=== PATIENT | female | born 1990 | race African-American/Black ===

== ENCOUNTER 2021-06-18 11:13 | Outpatient (CLI) | payer OTHER, SELFPAY ==
[2021-06-18 18:04] LABS: Basophils Percent Auto 0.3 % (0.2-1.2); Eosinophils Absolute Auto 0.2 K/mm3 (0-0.3); Eosinophils Percent Auto 1.5 % (0-4.4); Hematocrit 30.3 % (37.0-47.0); Hemoglobin 9.7 g/dL (12.0-15.0); Immature Granulocyte Absolute 0.21 K/mm3 (0.00-0.031); Immature Granulocyte Percent A 1.8 % (0-0.5); Lymphocytes Absolute Auto 1.21 K/mm3 (0.9-3.2); Lymphocytes Percent Auto 10.2 % (18.3-44.2); Mean Corpuscular Hemoglobin 29.4 pg (26-34); Mean Corpuscular Volume 91.8 fl (80-100); Mean Platelet Volume 10.6 fl (7.4-10.4); Monocytes Absolute Auto 0.7 K/mm3 (0.1-0.6); Neutrophils Absolute Auto 9.5 K/mm3 (1.3-6.7); Neutrophils Percent Auto 80.2 % (45.5-73.1); Platelet Count Result 265 k/mm3 (150-375); Red Cell Distribution Width 13.4 % (11.5-14.5); White Blood Count 11.8 K/mm3 (4.5-10.0)
[2021-06-18 18:29] LABS: Glucose 1 Hour PP 50gm Dose 144 mg/dL
== END 2021-06-18 11:14 | disposition home or self-care (01) ==
PROVIDERS: Visit Provider Student in an Organized Health Care Education/Training Program
DX: Z34.93 Encounter for supervision of normal pregnancy, unspecified, third trimester (principal); Z3A.28 28 weeks gestation of pregnancy
CPT/HCPCS: 36415; 82947; 85025

== ENCOUNTER 2021-06-25 09:12 | Outpatient (CLI) | payer OTHER, SELFPAY ==
[2021-06-25 10:28] LABS: Glucose Fasting Gestational 103 mg/dL (>/=95)
[2021-06-25 12:05] LABS: Glucose 1 Hour Gest 162 mg/dL (>/=180)
[2021-06-25 13:19] LABS: Glucose 2 Hour Gest 154 mg/dL (>/= 155)
[2021-06-25 14:15] LABS: Glucose 3 Hour Gest 118 mg/dL (>/=140)
== END 2021-06-25 09:13 | disposition home or self-care (01) ==
PROVIDERS: PCP Student in an Organized Health Care Education/Training Program; Visit Provider Student in an Organized Health Care Education/Training Program
DX: R73.09 Other abnormal glucose (principal)
CPT/HCPCS: 36415; 82951; 82952

== ENCOUNTER 2021-07-12 20:30 | Observation (INO) | payer OTHER, SELFPAY ==
[2021-07-12 20:51] VITALS: BP 117/50; PULSE 93
[2021-07-12 21:00] VITALS: BP 115/57; PULSE 93
[2021-07-12 21:33] LABS: Add Urine Microscopic? YES; Appearance Urine Clear (Clear); Bacteria Urine Trace /hpf; Bilirubin Urine Negative (Negative); Blood Urine Negative (Negative); Color Urine Yellow (Yellow); Glucose Urine UA Negative (Negative); Ketones Urine Negative (Negative); Leukocyte Esterase Ur Negative LEU/UL (NEGATIVE); Mucus Urine Few /lpf; Nitrate Urine Negative (Negative); Protein Urine 1+ mg/dL (Negative); Squamous Epithelial Cell Urine Moderate /hpf (Few); Urobilinogen Urine Negative mg/dL (<2.0)
[2021-07-12 21:49] VITALS: TEMP 37
[2021-07-12 21:55] VITALS: BMI 34.7
--- NOTE | 2021-07-12 21:57 | OBADM ---
This patient, Mona Johnson, admitted to the OB room OB Post 116 for observation. Patient/family oriented to hospital policies and general routines including ID bracelet, bed and alarms, visiting hours, pain management, procedures, bathroom and other care routines, personal items, smoking policy, room service/diet, and visiting hours. Patient/Family are encouraged to report perceived risks to care and to ask questions if they do not understand what they are told or what they should do.
--- NOTE | 2021-07-30 13:03 | PM.OBTRLD ---
OB - Triage/Final Diagnosis Visit Information Comments/Additional reasons for admission: I have assessed the risk for this patient, Mona Johnson, and determined that she would benefit from observation care. Evaluation Laboratory results: Laboratory Tests 07/12/21 21:20 Urine Color Yellow Urine Appearance Clear Urine pH 5.0 Ur Specific [place] 1.030 Urine Protein 1+ H Urine Glucose (UA) Negative Urine Ketones Negative Ur Blood (Man) Negative Urine Nitrate Negative Urine Bilirubin Negative Urine Urobilinogen Negative Ur Leukocyte Esterase Negative Urine RBC 3-5 H Urine WBC 4-6 H Ur Squamous Epith Cells Moderate H Urine Bacteria Trace Urine Mucus Few H Final Diagnosis (1) contractions: Code(s): O47.00 - False labor before 37 completed weeks of gestation, unspecified trimester Status: Acute
== END 2021-07-12 22:05 | disposition home or self-care (01) ==
PROVIDERS: Admitting Provider Student in an Organized Health Care Education/Training Program; Visit Provider Student in an Organized Health Care Education/Training Program
DX: O47.03 False labor before 37 completed weeks of gestation, third trimester (principal); Z3A.32 32 weeks gestation of pregnancy
CPT/HCPCS: 81001; G0378; G0379

== ENCOUNTER 2021-08-12 10:07 | Outpatient (CLI) | payer OTHER, SELFPAY ==
[2021-08-12 20:31] LABS: Basophils Percent Auto 0.2 % (0.2-1.2); Eosinophils Absolute Auto 0.1 K/mm3 (0-0.3); Eosinophils Percent Auto 1.1 % (0-4.4); Hematocrit 36.4 % (37.0-47.0); Hemoglobin 12.2 g/dL (12.0-15.0); Immature Granulocyte Absolute 0.17 K/mm3 (0.00-0.031); Immature Granulocyte Percent A 1.7 % (0-0.5); Lymphocytes Absolute Auto 0.96 K/mm3 (0.9-3.2); Lymphocytes Percent Auto 9.8 % (18.3-44.2); Mean Corpuscular HGB Conc 33.5 g/dl (32-36); Mean Corpuscular Hemoglobin 31.6 pg (26-34); Mean Corpuscular Volume 94.3 fl (80-100); Mean Platelet Volume 10.7 fl (7.4-10.4); Monocytes Absolute Auto 0.8 K/mm3 (0.1-0.6); Monocytes Percent Auto 7.8 % (2.6-8.5); Neutrophils Absolute Auto 7.8 K/mm3 (1.3-6.7); Neutrophils Percent Auto 79.4 % (45.5-73.1); Platelet Count Result 212 k/mm3 (150-375); Red Blood Count 3.86 M/mm3 (4.2-5.4); Red Cell Distribution Width 17.2 % (11.5-14.5); White Blood Count 9.8 K/mm3 (4.5-10.0)
[2021-08-13 11:04] LABS: Rapid Plasma Reagin Non-Reactive (NonReactive)
[2021-08-13 11:26] LABS: HIV 1/2 Ab P24 Ag Result Negative (Negative)
== END 2021-08-12 10:08 | disposition home or self-care (01) ==
PROVIDERS: Visit Provider Student in an Organized Health Care Education/Training Program
DX: Z34.93 Encounter for supervision of normal pregnancy, unspecified, third trimester (principal); Z3A.39 39 weeks gestation of pregnancy
CPT/HCPCS: 36415; 85025; 86592; 86703; G0432

== ENCOUNTER 2021-09-03 05:00 | Inpatient (IN) | payer OTHER, SELFPAY ==
[2021-09-03] VITALS (166 sets, daily range): BP systolic 76–168; BP diastolic 40–152; PULSE 47–206; RESP 16–20; TEMP 36.3–37.9; O2SAT 77–100; BMI 36.3
--- NOTE | 2021-09-03 05:26 | LDADM ---
This patient, Mona Johnson, was admitted to Labor/Delivery/Recovery 107 on 09/03/21 at 05:00. Plans for labor, pain management and were discussed with patient. Patient/family oriented to hospital policies and general routines including ID bracelet, bed and alarms, visiting hours, pain management, procedures, bathroom and other care routines, personal items, smoking policy, room service/diet and guest tray routines, infant security routines, and visiting hours. Patient/Family are encouraged to report perceived risks to care and to ask questions if they do not understand what they are told or what they should do. See OBIX for further documentation.
[2021-09-03] MEDS: LACTATED RINGERS 1,000 ML 125 ML IV CONT ×3 (05:53→22:00)
[2021-09-03] MEDS: OXYTOCIN 30 UNITS/NS 500 ML 30 UNITS/500 ML BAG IV CONT (05:53)
[2021-09-03 06:05] LABS: Basophils Percent Auto 0.3 % (0.2-1.2); Eosinophils Absolute Auto 0.1 K/mm3 (0-0.3); Eosinophils Percent Auto 0.8 % (0-4.4); Hematocrit 37.6 % (37.0-47.0); Immature Granulocyte Absolute 0.12 K/mm3 (0.00-0.031); Immature Granulocyte Percent A 1.1 % (0-0.5); Lymphocytes Absolute Auto 1.46 K/mm3 (0.9-3.2); Lymphocytes Percent Auto 13.3 % (18.3-44.2); Mean Corpuscular HGB Conc 34.6 g/dl (32-36); Mean Corpuscular Hemoglobin 32.5 pg (26-34); Mean Platelet Volume 10.4 fl (7.4-10.4); Monocytes Absolute Auto 0.8 K/mm3 (0.1-0.6); Monocytes Percent Auto 7.3 % (2.6-8.5); Neutrophils Absolute Auto 8.5 K/mm3 (1.3-6.7); Neutrophils Percent Auto 77.2 % (45.5-73.1); Platelet Count Result 203 k/mm3 (150-375); Red Cell Distribution Width 17.2 % (11.5-14.5)
--- NOTE | 2021-09-03 09:57 | WPDANESEPP ---
Anes - Eval Pre Procedure Date/Time: 09/03/21 09:57 Pre Op Diagnosis: IOL Patient Data Age: 31 Gender: F Height: 1.57 m Weight: 90 kg Last Vital Signs Temp 36.3 C L 09/03/21 05:42 Pulse 89 09/03/21 09:01 Resp 18 09/03/21 05:42 BP 97/80 L 09/03/21 09:01 Allergies Allergy/AdvReac Type Severity Reaction Status Date / Time Penicillins Allergy Intermediate Unknown Verified 09/02/21 11:02 Home Medications Medication Instructions Recorded Confirmed Type docosahexaenoic acid 200 mg capsule 200 mg PO DAILY 02/24/21 08/13/21 History cholecalciferol (vitamin D3) 50 50 mcg PO DAILY #90 cap 03/04/21 08/13/21 Rx mcg (2,000 unit) capsule ferrous sulfate 325 mg (65 mg 325 mg PO DAILY #90 tablet 06/22/21 08/13/21 Rx iron) tablet valacyclovir 1 gram tablet 1,000 mg PO Q12H #20 tablet 08/04/21 08/13/21 Rx valacyclovir 500 mg tablet 500 mg PO Q12H #60 tablet 08/13/21 08/13/21 Rx Laboratory Tests 09/03/21 09/03/21 09/03/21 05:20 05:20 05:20 WBC 11.0 K/mm3 H K/mm3 (4.5-10.0) RBC 4.00 M/mm3 L M/mm3 (4.2-5.4) Hgb 13.0 g/dL g/dL (12.0-15.0) Hct 37.6 % % (37.0-47.0) MCV 94.0 fl fl (80-100) MCH 32.5 pg pg (26-34) MCHC 34.6 g/dl g/dl (32-36) RDW 17.2 % H % (11.5-14.5) Plt Count 203 k/mm3 k/mm3 (150-375) MPV 10.4 fl fl (7.4-10.4) Immature Gran % (Auto) 1.1 % H % (0-0.5) Neut % (Auto) 77.2 % H % (45.5-73.1) Lymph % (Auto) 13.3 % L % (18.3-44.2) [place] % (Auto) 7.3 % % (2.6-8.5) Eos % (Auto) 0.8 % % (0-4.4) Baso % (Auto) 0.3 % % (0.2-1.2) Lymph # (Auto) 1.46 K/mm3 K/mm3 (0.9-3.2) [place] # (Auto) 0.8 K/mm3 H K/mm3 (0.1-0.6) Eos # (Auto) 0.1 K/mm3 K/mm3 (0-0.3) Baso # (Auto) 0.0 K/mm3 K/mm3 (0.0-0.1) Abs Immat Gran (auto) 0.12 K/mm3 H K/mm3 (0.00-0.031) Absolute Neuts (auto) 8.5 K/mm3 H K/mm3 (1.3-6.7) Absolute Nucleated RBC 0.0 K/mm3 K/mm3 (0.0-0.012) Nucleated RBC % 0.0 % % (0.0-0.2) RPR Pending Blood Type A Positive Antibody Screen Negative Patient hx anesthesia problems: none Family hx anesthesia problems: none Results Review: All pre-operative results and documents have been reviewed as part of the pre-operative evaluation. [facility] Past Medical History Medical History History of back pain injections in back. History of drainage of abscess Left breast History of vaginal delivery x1 Family History Family History Father Diabetes mellitus Hypertension Cerebrovascular accident Mother Heart disease Cerebrovascular accident Grandparent Diabetes mellitus Hypertension Thyroid disorder Social History Social History Smoking status: Never smoker Alcohol intake: former Substance use: never Spiritual care concerns: No Exam Day of Procedure 09/03/21 09:57 Patient weight: obese Heart: regular rate and rhythm Lungs: normal air movement Airway: Mallampati scale Neurological: alert and oriented
--- NOTE | 2021-09-03 10:27 | PM.IMHP ---
H&P: HPI History of Present Illness Date/Time: 09/03/21 10:27 Patient is a 31yo LMP 11/29/20 with MOY 09/05/21 currently 39w5d gestation who presents to L&D for scheduled elective IOL. Patient is dated by LMP consistent with US on 02/03/21 at 9w gestation. She presents for a scheduled elective IOL. Reports feeling well today. Reports occasional contractions that she has experienced for past several weeks. Denies any vaginal bleeding or leakage of fluid. Reports good movement. Patient was diagnosed with primary HSV outbreak a few weeks ago. She was adequately treated and has remained on suppression therapy since then. She denies any prodromal symptoms and has no evidence of recurrence at this time. Chief Complaint: Intrauterine at 39w5d gestation Review of Systems Review of Systems: All systems reviewed & are unremarkable except as noted in HPI and below Constitutional: Constitutional: Reports as per HPI, Reports no additional constitutional complaints, Denies chills, Denies fever(s), Denies headache(s) and Denies night sweats Eyes: Eyes: Reports as per HPI and Reports no additional eye complaints ENT: Reports system reviewed and no additional complaints, except as documented, Reports as per HPI, Reports Normal hearing present and Denies headache(s) Cardiovascular: Cardiovascular: Reports as per HPI, Reports no additional cardiovascular complaints, Denies chest pain and Denies dyspnea Respiratory: Respiratory: Reports as per HPI, Reports no additional respiratory complaints, Denies cough and Denies dyspnea Gastrointestinal: Gastrointestinal: Reports as per HPI, Reports no additional gastrointestinal complaints, Denies abdominal pain, Denies change in bowel habits, Denies change in stool character, Denies nausea and Denies vomiting Genitourinary: Genitourinary: Reports no additional female genitourinary complaints, Reports as per HPI, Denies abnormal vaginal bleeding, Denies genital lesions, Denies hot flashes, Denies dyspareunia, Denies pelvic pain, Denies sexual dysfunction, Denies urinary incontinence, Denies vaginal discharge, Denies vaginal dryness and Denies vaginal odor Musculoskeletal: Musculoskeletal: Reports no additional musculoskeletal complaints and Reports as per HPI Integumentary/Breasts: Skin/Breast: Reports system reviewed and no additional complaints, except as docu, Reports as per HPI, Denies breast pain and Denies nipple discharge Neurologic: Reports system reviewed and no additional complaints, except as documented, Reports as per HPI, Reports Normal hearing present and Denies headache(s) Psychiatric: Psychiatric: Reports no additional psychiatric complaints, Reports as per HPI, Denies anxiety and Denies depression Endocrine: Endocrine: Reports no additional endocrine complaints and Reports as per HPI Hematologic/Lymphatic: Hematologic/Lymphatic: Reports no additional hematologic/lymphatic complaints and Reports as per HPI Allergic/Immunologic: Allergic/Immunologic: Reports no additional allergic/immunologic complaints and Reports as per HPI PMFSH Past Medical History Medical History History of back pain injections in back. History of drainage of abscess Left breast History of vaginal delivery x1 Family History Family History Father Diabetes mellitus Hypertension Cerebrovascular accident Mother Heart disease Cerebrovascular accident Grandparent Diabetes mellitus Hypertension Thyroid disorder Social History Social History Smoking status: Never smoker Alcohol intake: former Substance use: never Spiritual care concerns: No Meds Home Medications and Allergies Home Medications Medication Instructions Recorded Confirmed Type docosahexaenoic acid 200 mg capsule 200 mg PO DAILY 02/24/21 08/13/21 History inna
--- NOTE | 2021-09-03 10:46 | WPDHPUPDATE1 ---
History and Physical Update Update Date/Time: 09/03/21 10:46 History and Physical has been reviewed, including an updated exam of the patient. There are NO changes in the patient's condition. Risks, benefits, and alternatives have been discussed and questions answered. Patient agrees to proceed with procedure.
[2021-09-03] MEDS: fentaNYL CITRATE INJ (*CRX) 100 MCG/2 ML VIAL 50 MCG IV PUSH (11:41)
[2021-09-03] MEDS: fentaNYL CITRATE INJ (*CRX) 100 MCG/2 ML VIAL IV PUSH ×2 (15:14→17:29)
[2021-09-03] MEDS: diphenhydrAMINE HCl INJ 50 MG/ML VIAL 25 MG IV PUSH ×2 (15:40→19:17)
--- NOTE | 2021-09-03 18:55 | PM.OBPNLAB ---
Pain Control Date/time seen: 09/03/21 18:55 Patient doing well. Just received epidural and is comfortable. Per RN earlier, patient's cervix was edematous. Pt received Benadryl IV 25mg a few hours ago. SVE still /-2. Still mildly-moderately edematous. IUPC placed. Will give propranolol 2mg slow IV push and Benadryl IV 25mg again to see if patient makes any further progress. Continue pitocin. Will reevaluate in 2 hours.
[2021-09-03] MEDS: PROPRANOLOL HCL 1 MG/ML VIAL 2 MG IV PUSH (19:17)
--- NOTE | 2021-09-03 23:40 | PM.OBPRVD ---
OB - Delivery Note Procedure Delivery date: 09/03/21 Procedure: The patient is a now 31-year-old who presented to labor and delivery on the morning of 09/03/2021 at 39 weeks and 5 days gestation for a scheduled elective induction of labor. Upon presentation, patient was noted to be proximally 4 cm dilated. Induction of labor was started with Pitocin. Pitocin was started and continued titrated throughout the morning and early afternoon. Patient made cervical change to approximately 8 cm dilated. At 1:24 p.m., artificial rupture membranes was performed. Clear amniotic fluid was noted. It was anticipated that patient would progress rather quickly shortly after AROM, however, labor course became protracted afterwards. Cervical edema was also noted. head was at -2 station. Patient received 1 dose of IV Benadryl 25 mg to see if edema would resolve. Edema, however, persisted. Patient became increasingly uncomfortable and received an epidural for pain management which was placed without difficulty. At approximately 7:00 p.m., cervical exam remained unchanged at 8 cm dilated. An IUPC was placed for enhanced monitoring. Patient received a 2nd dose of IV Benadryl 25 mg as well as IV Propranolol 2 mg for protracted labor course. Patient made slow change to approximately 9 cm dilated and head descended to -1 station. Patient was extremely motivated to have a vaginal delivery and was permitted additional time despite protracted labor course. At approximately 10:20 p.m., patient's temperature was noted to be 100.2? and tachycardia was noted. Patient was noted to be fully dilated at 10:57 p.m. Patient was encouraged to push and found to be pushing well and tachycardia seemed to resolve. She was prepped and draped for delivery. At 11:07 p.m., patient delivered head atraumatically and without difficulty in PASTORA presentation. Occiput restituted to maternal left side. A tight nuchal cord was noted, however, unable to be reduced. With subsequent push, the 's neck, shoulders, and rest of body delivered without difficulty. A nuchal cord x1 as well as a body cord were noted and reduced. was crying spontaneously. Infant's nose and mouth were suctioned with bulb suction. The was placed on maternal abdomen where care was assumed by awaiting nursing staff. Delayed cord clamping was performed for approximately 60 seconds. The cord was clamped and cut. A possible foul odor was noted. Suspected chorioamnionitis. Maternal temperature was taken and was 100.7?. A segment of cord was collected for cord gases. Cord blood was also collected. The placenta was delivered spontaneously and intact. Placenta to be sent to pathology for analysis. Uterine fundus noted to be firm with massage. On inspection, no lacerations were noted. The was a live-born male infant, Apgars 9 and 9, weighing 7 lb 12 oz. Estimated blood loss for entire delivery was 300 cc. Both mother and baby doing well at end of delivery. Mother to receive treatment for suspected chorioamnionitis. events: Labor Induction Intrapartal events: Febrile and Chorioamnionitis Induction method: per pitocin protocol Delivery augmentation: rupture of membranes Delivery monitor: external FHT, external uterine and internal uterine Route of delivery: Laceration Description: None Specimen: Yes (placenta and cord, cord blood, cord gases) Quantitative Blood Loss (ml): 300 Anesthesia type: Epidural Disposition: floor Complications: No immediate complications Baby Date of : 09/03/21 Time of : 23:07 Weeks of gestation at delivery: 39 (39.5) Infant gender: Male Weight (pounds): 7 Weight (ounces): 12 presentation: vertex position: Left Occiput Anterior Placenta delivery description: Spontaneous cord vessel description: 3 Vessels, Nuchal Cord (x1), Tight, Around Body x1 and Delayed Cord Clamping (x60 seconds)
[2021-09-03] MEDS: OXYTOCIN 30 UNITS/NS 500 ML 30 UNITS/500 ML BAG 125 UNITS IV CONT (23:41)
[2021-09-04] VITALS (14 sets, daily range): BP systolic 108–128; BP diastolic 50–87; PULSE 92–219; RESP 16–18; TEMP 36.5–38.1; O2SAT 98–100
[2021-09-04] MEDS: ACETAMINOPHEN 325 MG TABLET 650 MG PO ×2 (00:20→10:58)
[2021-09-04] MEDS: GENTAMICIN SULFATE INJ 330 MG in DEXTROSE 5% 100 ML 100 MG IVPB (00:51)
[2021-09-04] MEDS: WITCH HAZEL 40 PADS 1 PAD TOPICAL (01:32)
[2021-09-04] MEDS: IBUPROFEN 600 MG TABLET PO ×2 (01:32→10:58)
[2021-09-04] MEDS: BENZOCAINE 20% AER SPR (*SP) 56 GM CAN 1 SPRAY TOPICAL (01:32)
--- NOTE | 2021-09-04 01:39 | OBPPTRN ---
Patient transferred to post room #282 via wheelchair. Support person present. Oriented to unit, room, information board, rooming in, admission packet and security measures. Patient verbalizes understanding.
[2021-09-04 06:12] LABS: Hematocrit 33.5 % (37.0-47.0); Hemoglobin 11.4 g/dL (12.0-15.0)
--- NOTE | 2021-09-04 07:30 | PC.NURSE ---
PT introductions made and plan of care discussed per post , bottle feeding, daily care activities, pain management and signs and symptoms of infection. PT verbalized understanding . PT and spouse both recipients of such instructions and no learning barriers identified. PT received instructions and education this shift via one to one discussion, mom baby care guide and demonstrations.
[2021-09-04] MEDS: DOCUSATE SODIUM 100 MG CAPSULE PO (10:58)
--- NOTE | 2021-09-04 11:27 | PM.OBPNVD ---
OB - PN: Subj Subjective Date/time seen: 09/04/21 11:27 Patient doing well this AM. Pain well controlled with medication. Denies any headache, chest pain, SOB, N/V, or fever. Minimal lochia. Baby well. OB - PN: Obj Data Labs CBC & Chem 7: 09/04/21 05:09 Labs: Laboratory Results - last 24 hr 09/04/21 05:09 Hgb 11.4 L Hct 33.5 L OB - PN A/P Assessment and Plan (1) Normal spontaneous vaginal delivery: Code(s): O80 - Encounter for full-term uncomplicated delivery Status: Acute Assessment and Plan: PPD#1 doing well continue routine care (2) Chorioamnionitis: Code(s): O41.1290 - Chorioamnionitis, unspecified trimester, not applicable or unspecified Status: Acute Assessment and Plan: continue antibiotics x 24 hours Time Spent With Patient Time: Total time spent is greater than 50% in coordination of care (as documented) at patient's floor/unit and/or counseling patient: Exam Const: General: cooperative, healthy appearing, comfortable and no acute distress GI: Inspection: non-distended GI Palp: Yes Soft to palpation and No Tenderness to palpation present (GI) Other: fundus firm below umbilicus Extrem: Right lower extremity: edema Details: 1+ Left lower extremity: edema Details: 1+ Other: no calf tenderness
[2021-09-04 13:07] LABS: Estimated CRCL calculation 94 ml/min; Estimated Glomerular Filt Rate > 60
[2021-09-04 14:01] LABS: Gentamicin Random 0.8 ug/mL (5.0-12.0)
--- NOTE | 2021-09-04 15:10 | WPDANLDPN2 ---
Anes-Prog Note L&D Date/Time: 09/04/21 15:10 Comfortable throughout: labor and delivery Neuraxial method: epidural Epidural/Spinal procedure site: clean & non-tender Neuro status: Neuro function grossly intact. Cardiovascular status: normal Respiratory status: normal Airway patency: baseline Mental status: baseline Post-Op hydration status: normal Vital Signs: Last Vital Signs Temp 36.6 C 09/04/21 11:30 Pulse 100 09/04/21 11:30 Resp 18 09/04/21 11:30 BP 110/60 09/04/21 11:30 Pulse Ox 98 09/04/21 11:30 Pain score (VAS): 0 I/O: Intake & Output 09/03/21 09/04/21 09/04/21 23:59 07:59 15:59 Intake Total 1000 1108.25 Output Total 1235 Balance 1000 -126.75 Post-procedural complaints: none Patient feedback: Patient satisfied with anesthetic care.
[2021-09-05] MEDS: ACETAMINOPHEN 325 MG TABLET 650 MG PO ×2 (00:26→10:26)
[2021-09-05] MEDS: IBUPROFEN 600 MG TABLET PO ×2 (00:26→10:27)
[2021-09-05] MEDS: GENTAMICIN SULFATE INJ 330 MG in DEXTROSE 5% 100 ML 100 MG IVPB (00:27)
--- NOTE | 2021-09-05 00:37 | PC.NURSE ---
Patient viewed the discharge video Mother & Baby Care, The First Two Weeks . Patient was given the opportunity and encouraged to ask questions. Patient verbalized understanding of information shared and has been given the mother/baby guide for home reference.
--- NOTE | 2021-09-05 08:25 | PM.OBPNVD ---
OB - PN: Subj Subjective Date/time seen: 09/05/21 08:25 Patient doing well. Reports sore tail bone and mild cramping. Otherwise, doing well. Pain well controlled. Minimal lochia. Denies any fever, chest pain, SOB, N/V. Ambulating without difficulty. Baby well. OB - PN: Obj Data Labs CBC & Chem 7: 09/04/21 05:09 09/04/21 12:26 Labs: Laboratory Results - last 24 hr 09/04/21 09/04/21 12:26 12:26 Creatinine 0.80 Estim Creat Clear Calc 94 Estimated GFR > 60 Random Gentamicin 0.8 L OB - PN A/P Assessment and Plan (1) Normal spontaneous vaginal delivery: Code(s): O80 - Encounter for full-term uncomplicated delivery Status: Acute Assessment and Plan: PPD#2 doing well continue routine care dc home today emergency precautions reviewed (2) Chorioamnionitis: Code(s): O41.1290 - Chorioamnionitis, unspecified trimester, not applicable or unspecified Status: Acute Assessment and Plan: s/p abx doing well afebrile Time Spent With Patient Time: Total time spent is greater than 50% in coordination of care (as documented) at patient's floor/unit and/or counseling patient: Exam Const: General: cooperative, healthy appearing, comfortable and no acute distress GI: Inspection: non-distended GI Palp: Yes Soft to palpation and No Tenderness to palpation present (GI) Other: fundus firm below umbilicus Extrem: Right lower extremity: no edema Left lower extremity: no edema Other: no calf tenderness
--- NOTE | 2021-09-05 08:27 | P.DS_ITS ---
DS: Admitting Diagnosis Discharge Date 09/05/21 Admitting Diagnosis 09/03/21 OB - DS: Summary OB Procedures : None OB Procedures Intrapartum: Spontaneous Vag Delivery OB Procedures: : Antibiotics Time Spent with Patient Time attestation: Total time spent providing and/or coordinating discharge servi nini: DS: Data Data Completed and Pending Pending studies at discharge: Pending at discharge 09/03/21 23:42 Surgical [PTH] Routine Labs on day of discharge: Labs from last 24 hours 09/04/21 09/04/21 12:26 12:26 Creatinine 0.80 Estim Creat Clear Calc 94 Estimated GFR > 60 Random Gentamicin 0.8 L Discharge Plan Discharge Attending physician on discharge: Rossi Cuadra Discharging Clinician: Rossi Cuadra Anticipated Discharge Date/Time: 09/05/21 08:28 Patient Disposition: Home, Self-Care Activity: as tolerated and pelvic rest Diet: regular Discharge Instructions: Call office ([phone]) to schedule a visit in 4-6 weeks. You may take Ibuprofen 600mg every 6 hours as needed for pain. Pain medication may make you constipated. It may be helpful to take an [id number] stool softener, such as Colace and/or Senokot, along with the pain medication to help lessen constipation. Call office or go to ED for pain not controlled with medication, headache, chest pain, shortness of breath, fever, chills, persistent nausea or vomiting, severe abdominal pain, heavy vaginal bleeding >2 pads/hour, foul vaginal discharge or odor, or problems with your breasts. Patient Instructions: Antibiotic Form Stand Alone Forms: General Discharge Information Follow-up/Referrals: Rossi Cuadra MD [Physician] - Discharge Medications: Continued DHA 200 mg capsule 200 mg PO DAILY RF: 0 cholecalciferol (vitamin D3) 50 mcg (2,000 unit) capsule 50 mcg PO DAILY Qty: 90 RF: 0 ferrous sulfate 325 mg (65 mg iron) tablet 325 mg PO DAILY Qty: 90 RF: 0 Discontinued valacyclovir 500 mg tablet 500 mg PO Q12H Qty: 60 RF: 0 valacyclovir 1 gram tablet 1,000 mg PO Q12H Qty: 20 RF: 0 Date of admission: 09/03/21 05:00 Primary Care Provider: UNKNOWN,DOCTOR Admitting Provider: Rossi Cuadra Attending physician on admission: Rossi Cuadra Condition: Stable
[2021-09-05 10:22] VITALS: BP 125/64; PULSE 105; RESP 18; TEMP 36.8; O2SAT 99
[2021-09-05] MEDS: BENZOCAINE 20% AER SPR (*SP) 56 GM CAN 1 SPRAY TOPICAL (10:26)
[2021-09-05] MEDS: WITCH HAZEL 40 PADS 1 PAD TOPICAL (10:26)
[2021-09-05] MEDS: DOCUSATE SODIUM 100 MG CAPSULE PO (10:27)
--- NOTE | 2021-09-05 11:00 | PC.NURSE ---
PT received discharge instructions per protocol and verbalized understanding of such care.
--- NOTE | 2021-09-05 11:43 | PC.NURSE ---
Patient was given the opportunity to view the discharge video Mother & Baby Care, The First Two Weeks and to ask questions. Patient declined viewing the video and has been given the mother/baby guide for home reference. PT discharged to home ambulatory accompanied by significant other and infant and taken to waiting car. Follow up appts confirmed
[2021-09-06 06:22] LABS: Rapid Plasma Reagin Non-Reactive (NonReactive)
[2021-09-07 08:46] VITALS: BP 120/77; PULSE 100; RESP 20; TEMP 37.3; O2SAT 100
== END 2021-09-05 11:43 | disposition home or self-care (01) | DRG 560 ==
LOC: ANHLDR 05:16 → ANHOB2 09-04 02:27
PROVIDERS: Admitting Provider Student in an Organized Health Care Education/Training Program; Visit Provider Student in an Organized Health Care Education/Training Program
DX: O98.32 Other infections with a predominantly sexual mode of transmission complicating childbirth (principal); Z37.0 Single live birth; Z3A.39 39 weeks gestation of pregnancy; B00.9 Herpesviral infection, unspecified; O36.8330 Maternal care for abnormalities of the fetal heart rate or rhythm, third trimester, not applicable or unspecified; O41.1230 Chorioamnionitis, third trimester, not applicable or unspecified
CPT/HCPCS: 36415; 80170; 82565; 85014; 85018; 85025; 86592; 86850; 86900; 86901; 88307; A9270; J1200; J1580; J1800; J2590; J2795; J3010; J3370; J7120

== ENCOUNTER 2023-08-17 12:51 | Outpatient (CLI) | payer OTHER, SELFPAY ==
--- NOTE | ~2023-08-17 | US_ITS ---
CORRECTED REPORT exam description change [facility] [place] 08/21/23 This report was recreated on 08/21/23. Original report was EXAMINATION: US OB <= 14 weeks fetus; US OB <= 14 wk fetus add gest DATE: 02/24/17 13:35:00 INDICATION: Spotting complicating during first trimester TECHNIQUE: Real-time pelvic ultrasound utilizing transabdominal probe was performed. The interpreting radiologist was not present for the study. COMPARISON: None. FINDINGS: The uterus measures 12.5 x 6.2 x 8.1 cm. There are 2 separate intrauterine gestational sacs by a thick membrane. A yolk sac and pole are identified in each gestational sac. Normal cervical length of 5.3 cm. The crown rump length for fetus A in the sac which is positioned caudal to gestational sac B measures 1.8 cm, which correlates with an estimated gestational age of 8 weeks and 2 days. heart motion is identified measuring 171 beats per minute (bpm) by M-mode Doppler. The crown rump length for fetus B in the sac positioned cephalad at the fundus measures 1.7 cm, which correlates with an estimated gestational age of 8 weeks and 1 days. heart motion is identified measuring 163 beats per minute (bpm) by M-mode Doppler. Small subchorionic hematoma along the margin of the gestational sac a The right ovary measures 3.8 x 3.0 x 3.5 cm. There are couple anechoic cysts/follicles in the right ovary, the larger measuring 2.6 cm in maximal diameter. The left ovary measures 2.9 x 1.4 x 2.1 cm. Vascular flow identified in both ovaries on color Doppler. There is no free fluid in the pelvis. IMPRESSION: 1. Dichorionic, diamnionic with 2 living fetuses. 2. Gestational age by ultrasound of 8 weeks 1 day(s) +/- 5 day(s) with ultrasound estimated date of delivery (MOY) of 03/26/2024. 3. Small subchorionic hematoma. Reviewed, dictated and finalized at location A. MTDD IMPRESSION: 1. Dichorionic, diamnionic with 2 living fetuses. 2. Gestational age by ultrasound of 8 weeks 1 day(s) +/- 5 day(s) with ultraso und estimated date of delivery (MOY) of 03/26/2024. 3. Small subchorionic hematoma.
[2023-08-20 12:02] LABS: Progesterone 34.6 ng/mL (***)
== END 2023-08-17 12:52 | disposition home or self-care (01) ==
LOC: ANHIMG 12:53
PROVIDERS: Visit Provider Registered Nurse
DX: O26.859 Spotting complicating pregnancy, unspecified trimester (principal); Z3A.08 8 weeks gestation of pregnancy
CPT/HCPCS: 36415; 76801; 76802; 84144; 84702; 86850; 86900; 86901

== ENCOUNTER 2023-08-22 19:16 | Emergency (ER) | payer OTHER, SELFPAY ==
[2023-08-22 19:27] VITALS: BP 111/67; PULSE 91; RESP 17; TEMP 37; O2SAT 99
[2023-08-22 19:45] LABS: Basophils Absolute Auto 0.1 K/mm3 (0.0-0.1); Basophils Percent Auto 0.4 % (0.2-1.2); Eosinophils Absolute Auto 0.2 K/mm3 (0-0.3); Eosinophils Percent Auto 1.6 % (0-4.4); Hemoglobin 12.3 g/dL (12.0-15.0); Immature Granulocyte Absolute 0.05 K/mm3 (0.00-0.031); Immature Granulocyte Percent A 0.4 % (0-0.5); Lymphocytes Absolute Auto 2.46 K/mm3 (0.9-3.2); Mean Corpuscular HGB Conc 34.2 g/dl (32-36); Mean Corpuscular Volume 93.8 fl (80-100); Mean Platelet Volume 9.3 fl (7.4-10.4); Monocytes Absolute Auto 0.8 K/mm3 (0.1-0.6); Monocytes Percent Auto 6.2 % (2.6-8.5); Neutrophils Absolute Auto 9.4 K/mm3 (1.3-6.7); Neutrophils Percent Auto 72.4 % (45.5-73.1); Platelet Count Result 305 k/mm3 (150-375); Red Blood Count 3.84 M/mm3 (4.2-5.4); Red Cell Distribution Width 12.1 % (11.5-14.5)
[2023-08-22 19:54] LABS: Alanine Aminotransferase 14 U/L (6-35); Albumin Level 4.2 g/dL (3.5-5.1); Alkaline Phosphatase 53 U/L (38-126); Anion Gap 9 mmol/L (8-16); Aspartate Amino Transferase 16 U/L (14-36); Bilirubin,Total 0.3 mg/dL (0.2-1.3); Blood Urea Nitrogen 11 mg/dL (7-17); Calcium 9.2 mg/dL (8.4-10.2); Carbon Dioxide 21 mmol/L (22-30); Chloride 102 mmol/L (98-107); Estimated CRCL calculation 125 ml/min; Estimated Glomerular Filt Rate > 60; Glucose 93 mg/dL (65-110); Lipase 132 U/L (23-300); Potassium 4.3 mmol/L (3.4-5.0); Sodium 132 mmol/L (137-145)
[2023-08-22 20:16] LABS: Appearance Urine Cloudy (Clear); Bacteria Urine None Seen /hpf; Bilirubin Urine Negative (Negative); Blood Urine Negative (Negative); Color Urine Yellow (Yellow); Glucose Urine UA Negative (Negative); Ketones Urine Negative (Negative); Leukocyte Esterase Ur Negative LEU/UL (Negative); Nitrate Urine Negative (Negative); Non Pathogenic Casts 0-2; Protein Urine Negative (Negative); RBC Urine 0-2 /hpf (0-2); Specific Grav Ur 1.026 (1.001-1.035); Squamous Epithelial Cell Urine Few /hpf (Few); WBC Urine 0-5 /hpf
[2023-08-22 20:22] LABS: Add Urine Microscopic? YES
[2023-08-23 00:05] VITALS: BP 111/67; PULSE 79; RESP 18; TEMP 36.9; O2SAT 100
--- NOTE | 2023-08-23 00:38 | PC.NURSE ---
Patient walked up to triage and stated that she was leaving
== END 2023-08-23 00:38 | disposition left against medical advice (07) ==
PROVIDERS: Emergency Provider Emergency Medicine
DX: R11.2 Nausea with vomiting, unspecified (principal)
CPT/HCPCS: 36415; 80053; 81001; 81025; 83690; 85025; 99199

== ENCOUNTER 2023-09-04 09:54 | Outpatient (CLI) | payer OTHER, SELFPAY ==
--- NOTE | ~2023-09-04 | US_ITS ---
EXAMINATION: US OB <= 14 weeks fetus DATE: 09/04/2023 10:55 INDICATION: Subchorionic hemorrhage. TECHNIQUE: Real-time transabdominal obstetric ultrasound. FINDINGS: Comparison to 08/17/2023 There are twin living intrauterine pregnancies, dichorionic, diamniotic. Twin A measures 4.58 cm shelia esponding to 11 week 3 day gestation. Twin B measures 4.59 cm corresponding to 11 week 3 day gestatio n. Twin A heart rate 157 BPM. Twin B heart rate 165 BPM. Left ovary measures 2.4 x 1.5 x 1.6 cm. Right ovary measures 5 x 3.3 x 2.8 cm and contains a 2 cm corpus luteal cyst. Twin A is mater nal right presentation. Twin B maternal left presentation. No subchorionic hemorrhage identified. IMPRESSION: 1. Twin living intrauterine with an EGA of 10 weeks, 6 days (EDC by initial ultrasound of ). Reviewed, dictated and finalized at location B. IMPRESSION: 1. Twin living intrauterine with an EGA of 10 weeks, 6 days (EDC by i nitial ultrasound of 03/27/2024).
== END 2023-09-04 09:55 | disposition home or self-care (01) ==
PROVIDERS: Visit Provider Obstetrics & Gynecology
DX: O30.041 Twin pregnancy, dichorionic/diamniotic, first trimester (principal); Z3A.10 10 weeks gestation of pregnancy
CPT/HCPCS: 76801

== ENCOUNTER 2023-09-21 10:40 | Outpatient (CLI) | payer OTHER, SELFPAY ==
[2023-09-21 11:43] LABS: Hemoglobin 12.4 g/dL (12.0-15.0); Mean Corpuscular HGB Conc 34.4 g/dl (32-36); Mean Corpuscular Hemoglobin 31.6 pg (26-34); Mean Corpuscular Volume 91.8 fl (80-100); Mean Platelet Volume 9.4 fl (7.4-10.4); Platelet Count Result 296 k/mm3 (150-375); Red Blood Count 3.92 M/mm3 (4.2-5.4); White Blood Count 11.8 K/mm3 (4.5-10.0)
[2023-09-21 11:49] LABS: Appearance Urine Turbid (Clear); Bacteria Urine 4+ /hpf; Bilirubin Urine Negative (Negative); Blood Urine Negative (Negative); Color Urine Yellow (Yellow); Glucose Urine UA Negative (Negative); Ketones Urine Trace mg/dL (Negative); Leukocyte Esterase Ur 2+ LEU/UL (NEGATIVE); Nitrate Urine Negative (Negative); Non Pathogenic Casts 0-2; Protein Urine Negative (Negative); RBC Urine 0-2 /hpf (0-2); Specific Grav Ur 1.026 (1.001-1.035); Squamous Epithelial Cell Urine Many /hpf (Few); pH Urine 6.5 (5.0-9.0)
[2023-09-21 12:30] LABS: Add Urine Microscopic? YES
[2023-09-21 12:33] LABS: HIV 1/2 Ab P24 Ag Result Negative (Negative)
[2023-09-21 12:36] LABS: Hepatitis B Surface Antigen Negative (Negative)
[2023-09-21 12:53] LABS: Hepatitis C Virus Antibody Negative (Negative)
[2023-09-21 14:27] LABS: Rapid Plasma Reagin Non-Reactive (NonReactive)
[2023-09-21 14:47] LABS: Rubella IgG Antibody > 110.0 IU/ML
[2023-09-26 10:29] LABS: Hematocrit 36.2 % (35.0-45.0); Hemoglobin 12.4 g/dL (11.7-15.5); MCH 32.5 pg (27.0-33.0); MCV 94.8 fL (80.0-100.0); RDW 12.7 % (11.0-15.0); Red Blood Cell Count 3.82 Mill/uL (3.80-5.10)
== END 2023-09-21 10:41 | disposition home or self-care (01) ==
LOC: ANHLAB 10:42
PROVIDERS: Visit Provider Obstetrics & Gynecology
DX: Z34.91 Encounter for supervision of normal pregnancy, unspecified, first trimester (principal); Z3A.00 Weeks of gestation of pregnancy not specified
CPT/HCPCS: 36415; 81001; 83021; 84443; 85027; 86592; 86703; 86762; 86787; 86803; 86850; 86900; 86901; 87086; 87340; G0432

== ENCOUNTER 2023-09-29 18:48 | Emergency (ER) | payer OTHER, SELFPAY ==
[2023-09-29] VITALS (13 sets, daily range): BP systolic 102–113; BP diastolic 45–68; PULSE 85–99; RESP 16–20; TEMP 36.2; O2SAT 97–100
--- NOTE | 2023-09-29 18:51 | ECG_ITS ---
Measurements Intervals [place] Rate: 96 P: 59 NM: 148 QRS: 44 QRSD: 89 T: 44 QT: 343 QTc: 435 Interpretive Statements SINUS RHYTHM WITH SINUS ARRHYTHMIA POSSIBLE LEFT ATRIAL ENLARGEMENT BASELINE ARTIFACT- III, V5-V6 BORDERLINE ECG NO PREVIOUS ECG AVAILABLE FOR COMPARISON Electronically Signed On 09-29-2023 21:40:43 DIRECTOR SEMICONDUCTOR by Michele Gonzalez D.O.
[2023-09-29 19:28] LABS: Basophils Percent Auto 0.2 % (0.2-1.2); Eosinophils Absolute Auto 0.2 K/mm3 (0-0.3); Eosinophils Percent Auto 1.8 % (0-4.4); Hematocrit 33.3 % (37.0-47.0); Hemoglobin 11.3 g/dL (12.0-15.0); Immature Granulocyte Absolute 0.11 K/mm3 (0.00-0.031); Immature Granulocyte Percent A 0.9 % (0-0.5); Lymphocytes Absolute Auto 1.88 K/mm3 (0.9-3.2); Lymphocytes Percent Auto 15.9 % (18.3-44.2); Mean Corpuscular HGB Conc 33.9 g/dl (32-36); Mean Corpuscular Hemoglobin 32.1 pg (26-34); Mean Corpuscular Volume 94.6 fl (80-100); Mean Platelet Volume 9.3 fl (7.4-10.4); Monocytes Absolute Auto 0.6 K/mm3 (0.1-0.6); Monocytes Percent Auto 5.3 % (2.6-8.5); Neutrophils Percent Auto 75.9 % (45.5-73.1); Platelet Count Result 273 k/mm3 (150-375); Red Blood Count 3.52 M/mm3 (4.2-5.4); White Blood Count 11.9 K/mm3 (4.5-10.0)
[2023-09-29 19:44] LABS: Alanine Aminotransferase 13 U/L (6-35); Albumin Level 3.7 g/dL (3.5-5.1); Alkaline Phosphatase 56 U/L (38-126); Anion Gap 9 mmol/L (8-16); Aspartate Amino Transferase 22 U/L (14-36); Bilirubin,Total 0.3 mg/dL (0.2-1.3); Blood Urea Nitrogen 9 mg/dL (7-17); Calcium 8.8 mg/dL (8.4-10.2); Carbon Dioxide 21 mmol/L (22-30); Chloride 105 mmol/L (98-107); Estimated CRCL calculation 135 ml/min; Estimated Glomerular Filt Rate > 60; Glucose 126 mg/dL (65-110); Potassium 3.6 mmol/L (3.4-5.0); Sodium 135 mmol/L (137-145)
== END 2023-09-30 00:32 | disposition left against medical advice (07) ==
LOC: ANHED 09-30 00:12
PROVIDERS: Emergency Provider Emergency Medicine
DX: O26.892 Other specified pregnancy related conditions, second trimester (principal); Z3A.14 14 weeks gestation of pregnancy
CPT/HCPCS: 36415; 80053; 85025; 93005; 99199

== ENCOUNTER 2023-12-24 18:10 | Observation (INO) | payer OTHER, SELFPAY ==
--- NOTE | 2023-12-24 18:10 | OBADM ---
This patient, Mona Johnson, admitted to the OB room OB Post 115 for observation. Patient/family oriented to hospital policies and general routines including ID bracelet, bed and alarms, visiting hours, pain management, procedures, bathroom and other care routines, personal items, smoking policy, room service/diet, and visiting hours. Patient/Family are encouraged to report perceived risks to care and to ask questions if they do not understand what they are told or what they should do.
[2023-12-24 18:31] VITALS: RESP 17; TEMP 36.9
[2023-12-24 18:38] VITALS: BMI 36.3
--- NOTE | 2023-12-24 18:45 | PC.NURSE ---
Notified Dr. Blanco of patient arrival to OB unit with complaint of back pain s/p a fall yesterday. Patient states pain in her back started after falloing on her back/left side yesterday. Patient denies any leaking or vaginal bleeding and is reporting active movements. Urine collected and sent for UA with reflux to culture. Urine appearance turbid and dark yellow. FHTs for both twin A and twin B are appropriate for gestational age. VSS. Uterine contractions noted via toco monitoring q3-4 minutes, contractions palpate mild. Order received.
[2023-12-24 18:53] LABS: Appearance Urine Cloudy (Clear); Bacteria Urine 1+ /hpf; Bilirubin Urine Negative (Negative); Blood Urine Negative (Negative); Color Urine Yellow (Yellow); Glucose Urine UA Negative (Negative); Ketones Urine Trace mg/dL (Negative); Leukocyte Esterase Ur Trace LEU/UL (Negative); Nitrate Urine Negative (Negative); Non Pathogenic Casts 0-2; Protein Urine Trace mg/dL (Negative); Specific Grav Ur 1.031 (1.001-1.035); Squamous Epithelial Cell Urine Many /hpf (Few)
[2023-12-24] MEDS: TERBUTALINE SULFATE 1 MG/ML VIAL 0.25 MG SUB-Q (19:03)
[2023-12-24 19:06] VITALS: PULSE 89; O2SAT 97
[2023-12-24 19:11] VITALS: PULSE 91; O2SAT 98
[2023-12-24 19:12] LABS: Add Urine Microscopic? YES
[2023-12-24] MEDS: DEXTROSE 5%/LACTATED RINGERS 1,000 ML 999 ML IV CONT (19:23)
[2023-12-24 19:52] LABS: Fetal Fibronectin Negative
--- NOTE | 2023-12-24 19:59 | PC.NURSE ---
SEE OBIX NOTES FOR ADDITIONAL DOCUMENTATION
[2023-12-24] MEDS: NITROFURANTOIN MONOHYD MACROCR 100 MG CAP PO (20:12)
--- NOTE | 2023-12-24 20:15 | PC.NURSE ---
Discharge instructions reviewed with patient. Patient educated on labor precautions and educational handout provided. Patient education for Macrobid prescription also performed and patient instructed to cloth picker prescription and take the entire prescription as prescribed. Patient states understanding of all discharge education and instructions and denies questions.
--- NOTE | 2023-12-24 20:20 | PC.NURSE ---
Patient left OB unit ambulating without pain.
--- NOTE | 2024-01-22 11:50 | PM.OBTRLD ---
OB - Triage/Final Diagnosis Visit Information Comments/Additional reasons for admission: I have assessed the risk for this patient, Mona Johnson, and determined that she would benefit from observation care. Evaluation Laboratory results: Laboratory Tests 12/24/23 12/24/23 18:42 19:08 Urine Color Yellow Urine Appearance Cloudy H Urine pH 6.0 Ur Specific [place] 1.031 Urine Protein Trace Urine Glucose (UA) Negative Urine Ketones Trace H Ur Blood (Man) Negative Urine Nitrate Negative Urine Bilirubin Negative Urine Urobilinogen 1.0 Leukocyte Esterase Rfl Trace H Urine RBC 3-5 H Urine WBC 11-20 H Ur Squamous Epith Cells Many H Urine Bacteria 1+ H Urine Casts 0-2 Fibronectin Negative Final Diagnosis (1) Status post fall: Code(s): Z91.81 - History of falling Status: Acute
== END 2023-12-24 20:20 | disposition home or self-care (01) ==
LOC: ANHLDR 18:14 → ANHOBPP 18:16
PROVIDERS: Admitting Provider Obstetrics & Gynecology; Visit Provider Obstetrics & Gynecology
DX: Z04.3 Encounter for examination and observation following other accident (principal); O26.892 Other specified pregnancy related conditions, second trimester; Z3A.26 26 weeks gestation of pregnancy; W19.XXXA Unspecified fall, initial encounter
CPT/HCPCS: 81001; 82731; 87086; 96372; A9270; G0378; G0379; J3105; J7121

== ENCOUNTER 2023-12-28 12:45 | Outpatient (CLI) | payer OTHER, SELFPAY ==
[2023-12-28 19:20] LABS: Hematocrit 32.6 % (37.0-47.0); Hemoglobin 10.4 g/dL (12.0-15.0); Mean Corpuscular HGB Conc 31.9 g/dl (32-36); Mean Corpuscular Hemoglobin 30.1 pg (26-34); Mean Corpuscular Volume 94.2 fl (80-100); Platelet Count Result 206 k/mm3 (150-375); Red Blood Count 3.46 M/mm3 (4.2-5.4); Red Cell Distribution Width 15.9 % (11.5-14.5)
[2023-12-28 19:30] LABS: Glucose 1 Hour PP 50gm Dose 153 mg/dL
== END 2023-12-28 12:46 | disposition home or self-care (01) ==
LOC: ANHBWCLAB 12:47
PROVIDERS: Visit Provider Obstetrics & Gynecology
DX: O30.009 Twin pregnancy, unspecified number of placenta and unspecified number of amniotic sacs, unspecified trimester (principal); Z3A.00 Weeks of gestation of pregnancy not specified
CPT/HCPCS: 36415; 82947; 85027

== ENCOUNTER 2024-02-02 11:30 | Observation (INO) | payer OTHER, SELFPAY ==
[2024-02-02] VITALS (18 sets, daily range): BP systolic 113–131; BP diastolic 55–101; PULSE 87–116; BMI 38.5
--- NOTE | 2024-02-02 12:54 | PC.NURSE ---
Called Dr. Blanco with pt status. Informed of reactive tracing. SVE 4ext, closed int/thick/high. Contractions q 1-6 min. Orders received for Terbutaline and send FFN that was collected prior to SVE.
[2024-02-02 12:59] LABS: Appearance Urine Cloudy (Clear); Bacteria Urine 1+ /hpf; Bilirubin Urine Negative (Negative); Blood Urine Negative (Negative); Color Urine Yellow (Yellow); Glucose Urine UA Negative (Negative); Ketones Urine 1+ mg/dL (Negative); Leukocyte Esterase Ur 1+ LEU/UL (Negative); Nitrate Urine Negative (Negative); Non Pathogenic Casts 0-2; Protein Urine Trace mg/dL (Negative); RBC Urine 0-2 /hpf (0-2); Specific Grav Ur 1.017 (1.001-1.035); Squamous Epithelial Cell Urine Moderate /hpf (Few); WBC Urine 21-50 /hpf (0-3); pH Urine 6.5 (5.0-9.0)
[2024-02-02] MEDS: TERBUTALINE SULFATE 1 MG/ML VIAL 0.25 MG SUB-Q ×2 (13:01→13:38)
[2024-02-02 13:05] LABS: Add Urine Microscopic? YES
[2024-02-02 13:46] LABS: Fetal Fibronectin Negative
[2024-02-02] MEDS: NIFEdipine 10 MG CAPSULE PO (14:50)
--- NOTE | 2024-02-27 13:43 | PM.OBTRLD ---
OB - Triage/Final Diagnosis Visit Information Comments/Additional reasons for admission: I have assessed the risk for this patient, Mona Johnson, and determined that she would benefit from observation care. Evaluation Laboratory results: Laboratory Tests 02/02/24 02/02/24 12:46 12:59 Urine Color Yellow Urine Appearance Cloudy H Urine pH 6.5 Ur Specific [place] 1.017 Urine Protein Trace Urine Glucose (UA) Negative Urine Ketones 1+ H Ur Blood (Man) Negative Urine Nitrate Negative Urine Bilirubin Negative Urine Urobilinogen 1.0 Ur Leukocyte Esterase 1+ H Urine RBC 0-2 Urine WBC 21-50 H Ur Squamous Epith Cells Moderate Urine Bacteria 1+ H Urine Casts 0-2 Fibronectin Negative Final Diagnosis (1) contractions: Code(s): O47.00 - False labor before 37 completed weeks of gestation, unspecified trimester Status: Acute
--- NOTE | 2024-02-27 15:39 | PM.OBTRLD ---
OB - Triage/Final Diagnosis Visit Information Comments/Additional reasons for admission: I have assessed the risk for this patient, Mona Johnson, and determined that she would benefit from observation care. Evaluation Laboratory results: Laboratory Tests 02/02/24 02/02/24 12:46 12:59 Urine Color Yellow Urine Appearance Cloudy H Urine pH 6.5 Ur Specific [place] 1.017 Urine Protein Trace Urine Glucose (UA) Negative Urine Ketones 1+ H Ur Blood (Man) Negative Urine Nitrate Negative Urine Bilirubin Negative Urine Urobilinogen 1.0 Ur Leukocyte Esterase 1+ H Urine RBC 0-2 Urine WBC 21-50 H Ur Squamous Epith Cells Moderate Urine Bacteria 1+ H Urine Casts 0-2 Fibronectin Negative
== END 2024-02-02 16:40 | disposition home or self-care (01) ==
PROVIDERS: Admitting Provider Obstetrics & Gynecology; Visit Provider Obstetrics & Gynecology
DX: O47.00 False labor before 37 completed weeks of gestation, unspecified trimester (principal); Z3A.32 32 weeks gestation of pregnancy
CPT/HCPCS: 82731; 87086; 96372; A9270; G0378; G0379; J3105

== ENCOUNTER 2024-03-13 19:38 | Inpatient (IN) | payer OTHER, SELFPAY ==
[2024-03-13] VITALS (45 sets, daily range): BP systolic 112–146; BP diastolic 54–86; PULSE 87–110; TEMP 36.7; O2SAT 94–100; BMI 39.5
[2024-03-13 20:20] LABS: Glucose Point of Care 87 mg/dl (65-105)
[2024-03-13 20:38] LABS: Basophils Percent Auto 0.1 % (0.2-1.2); Eosinophils Absolute Auto 0.1 K/mm3 (0-0.3); Eosinophils Percent Auto 0.9 % (0-4.4); Hematocrit 35.5 % (37.0-47.0); Hemoglobin 12.2 g/dL (12.0-15.0); Immature Granulocyte Absolute 0.05 K/mm3 (0.00-0.031); Immature Granulocyte Percent A 0.7 % (0-0.5); Lymphocytes Absolute Auto 1.32 K/mm3 (0.9-3.2); Lymphocytes Percent Auto 19.2 % (18.3-44.2); Mean Corpuscular HGB Conc 34.4 g/dl (32-36); Mean Corpuscular Hemoglobin 31.2 pg (26-34); Mean Corpuscular Volume 90.8 fl (80-100); Mean Platelet Volume 12.1 fl (7.4-10.4); Monocytes Absolute Auto 0.6 K/mm3 (0.1-0.6); Neutrophils Absolute Auto 4.8 K/mm3 (1.3-6.7); Neutrophils Percent Auto 70.1 % (45.5-73.1); Platelet Count Result 168 k/mm3 (150-375); Red Blood Count 3.91 M/mm3 (4.2-5.4); White Blood Count 6.9 K/mm3 (4.5-10.0)
--- NOTE | 2024-03-13 20:42 | LDADM ---
This patient, Mona Johnson, was admitted to Labor/Delivery/Recovery 102 on 03/13/24 at 19:38. Plans for labor, pain management and were discussed with patient. Patient/family oriented to hospital policies and general routines including ID bracelet, bed and alarms, visiting hours, pain management, procedures, bathroom and other care routines, personal items, smoking policy, room service/diet and guest tray routines, infant security routines, and visiting hours. Patient/Family are encouraged to report perceived risks to care and to ask questions if they do not understand what they are told or what they should do. See OBIX for further documentation.
[2024-03-13] MEDS: OXYTOCIN 30 UNITS/NS 500 ML 30 UNITS/500 ML BAG IV CONT (21:37)
[2024-03-13] MEDS: LACTATED RINGERS 1,000 ML 125 ML IV CONT (21:40)
[2024-03-14] VITALS (241 sets, daily range): BP systolic 104–163; BP diastolic 39–147; PULSE 68–149; RESP 16–26; TEMP 36.4–38.1; O2SAT 81–100
[2024-03-14 00:56] LABS: Glucose Point of Care 93 mg/dl (65-105)
[2024-03-14 04:01] LABS: Glucose Point of Care 95 mg/dl (65-105)
[2024-03-14] MEDS: LACTATED RINGERS 1,000 ML 125 ML IV CONT ×4 (05:39→21:23)
[2024-03-14 07:47] LABS: Glucose Point of Care 86 mg/dl (65-105)
[2024-03-14] MEDS: DEXTROSE 5%/LACTATED RINGERS 1,000 ML 125 ML IV CONT ×2 (07:54→15:43)
--- NOTE | 2024-03-14 08:00 | WPDANESEPPF ---
Anes - Initial Pre Proc Eval Procedure: labor epidural Date/Time: 03/14/24 08:00 Surgeon: Giorgio Blanco MD Pre Op Diagnosis: labor pain Pre Op Diagnosis: IOL Patient Data Age: 34 Gender: F Height: 1.57 m Weight: 98 kg Last Vital Signs Temp 36.4 C L 03/14/24 06:05 Pulse 111 H 03/14/24 08:00 BP 127/67 03/14/24 08:00 Pulse Ox 99 03/14/24 07:56 O2 Del Method Room Air 03/13/24 20:41 Allergies Allergy/AdvReac Type Severity Reaction Status Date / Time Penicillins Allergy Intermediate Unknown Verified 03/13/24 13:16 Home Medications Medication Instructions Recorded Confirmed Type docosahexaenoic acid 200 mg 200 mg PO DAILY 02/24/21 03/13/24 History capsule ( DHA) promethazine 12.5 mg tablet 12.5 mg PO Q6H PRN nausea and 09/28/23 03/13/24 Rx vomiting #30 tabs aspirin 81 mg tablet,delayed 81 mg PO DAILY 10/24/23 03/13/24 History release (Adult Low Dose Aspirin) blood sugar diagnostic (OneTouch #100 ea 01/04/24 03/06/24 Rx Verio test strips) blood-glucose meter (OneTouch #1 ea 01/04/24 03/06/24 Rx Verio Flex Meter) lancets 33 gauge #100 ea 01/04/24 03/06/24 Rx ferrous sulfate 325 mg (65 mg 325 mg PO DAILY #30 tabs 01/16/24 03/13/24 Rx iron) tablet insulin glargine 100 unit/mL (3 See Rx Instructions .Route .COMPLEX 02/28/24 03/13/24 History mL) subcutaneous pen (Lantus Solostar U-100 Insulin) valacyclovir 500 mg tablet 500 mg PO DAILY #90 tabs 03/05/24 03/13/24 Rx One Daily BYMOUTH DAILY 03/13/24 History Laboratory Tests 03/13/24 03/13/24 03/14/24 20:15 20:30 00:38 WBC 6.9 K/mm3 (4.5-10.0) RBC 3.91 L M/mm3 (4.2-5.4) Hgb 12.2 g/dL (12.0-15.0) Hct 35.5 L % (37.0-47.0) MCV 90.8 fl (80-100) MCH 31.2 pg (26-34) MCHC 34.4 g/dl (32-36) RDW 16.0 H % (11.5-14.5) Plt Count 168 k/mm3 (150-375) MPV 12.1 H fl (7.4-10.4) Immature Gran % (Auto) 0.7 H % (0-0.5) Neut % (Auto) 70.1 % (45.5-73.1) Lymph % (Auto) 19.2 % (18.3-44.2) [place] % (Auto) 9.0 H % (2.6-8.5) Eos % (Auto) 0.9 % (0-4.4) Baso % (Auto) 0.1 L % (0.2-1.2) Lymph # (Auto) 1.32 K/mm3 (0.9-3.2) [place] # (Auto) 0.6 K/mm3 (0.1-0.6) Eos # (Auto) 0.1 K/mm3 (0-0.3) Baso # (Auto) 0.0 K/mm3 (0.0-0.1) Abs Immat Gran (auto) 0.05 H K/mm3 (0.00-0.031) Absolute Neuts (auto) 4.8 K/mm3 (1.3-6.7) Absolute Nucleated RBC 0.000 K/mm3 (0.0-0.012) Nucleated RBC % 0.0 % (0.0-0.2) POC Capillary Glucose 87 mg/dl 93 mg/dl (65-105) (65-105) RPR Pending Blood Type A Positive Antibody Screen Negative 03/14/24 03/14/24 03:57 07:44 WBC RBC Hgb Hct MCV MCH MCHC RDW Plt Count MPV Immature Gran % (Auto) Neut % (Auto) Lymph % (Auto) [place] % (Auto) Eos % (Auto) Baso % (Auto) Lymph # (Auto) [place] # (Auto) Eos # (Auto) Baso # (Auto) Abs Immat Gran (auto) Absolute Neuts (auto) Absolute Nucleated RBC Nucleated RBC % POC Capillary Glucose 95 mg/dl 86 mg/dl (65-105) (65-105) RPR Blood Type Antibody Screen Patient hx anesthesia problems: none Family hx anesthesia problems: none Results Review: All pre-operative results and documents have been reviewed as part of the pre-operative evaluation. [facility] Past Medical History Medical History Encounter for annual routine gynecological examination History of back pain injections in back. History of drainage of abscess Left breast His
--- NOTE | 2024-03-14 08:51 | PM.IMHP ---
H&P: HPI History of Present Illness Date/Time: 03/14/24 08:51 Chief Complaint: Medical induction of labor Narrative: 34 y/o at 38 weeks with di/di twin gestation. Vertex vertex with ultrasound on 03/13. PNC also significant for insulin requiring gestational diabetes, controlled. She has had normal surveillance testing. She has h/o hsv, she has been on suppression during , no outbreaks. No prodromal symptoms. Review of Systems Review of Systems: All systems reviewed & are unremarkable except as noted in HPI and below Constitutional: Constitutional: Reports no additional constitutional complaints and Denies headache(s) Eyes: Eyes: Denies spots in vision ENT: Reports system reviewed and no additional complaints, except as documented and Denies headache(s) Cardiovascular: Cardiovascular: Denies chest pain and Denies dyspnea Respiratory: Respiratory: Denies dyspnea Gastrointestinal: Gastrointestinal: Reports no additional gastrointestinal complaints Genitourinary: Genitourinary: Reports amenorrhea Musculoskeletal: Musculoskeletal: Reports no additional musculoskeletal complaints Integumentary/Breasts: Skin/Breast: Denies breast mass and Denies rash Neurologic: Denies headache(s) Psychiatric: Psychiatric: Reports no additional psychiatric complaints [facility] Past Medical History Medical History Encounter for annual routine gynecological examination History of back pain injections in back. History of drainage of abscess Left breast History of vaginal delivery x2 HSV-2 infection Family History Family History Father Diabetes mellitus Hypertension Cerebrovascular accident Mother Heart disease Cerebrovascular accident Grandparent Diabetes mellitus Hypertension Thyroid disorder Social History Social History Smoking status: Never smoker Second hand tobacco smoke exposure: No Alcohol intake: former Substance use: never Substance use type: does not use Do You Feel Safe in your Home?: Yes Lack of Transportation: No Lack of Food: Never True Current Housing: I Have Housing Concerned About Future Housing: No Difficulty Paying Gas/Electric Bills: No Difficulty Paying for Meds: No Currently Unemployed: No Education: High School Diploma/GED Difficulty w/ Childcare or Family Care: No Living arrangements: other Additional living arrangements comments: single Occupation/Education: occupation 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 Gender identity (if verbalized by the patient): Female Sexual Orientation (if Verbalized by the Patient): Straight or Heterosexual Spiritual care concerns: No Meds Home Medications and Allergies Home Medications Medication Instructions Recorded Confirmed Type docosahexaenoic acid 200 mg 200 mg PO DAILY 02/24/21 03/13/24 History capsule ( DHA) promethazine 12.5 mg tablet 12.5 mg PO Q6H PRN nausea and 09/28/23 03/13/24 Rx vomiting #30 tabs aspirin 81 mg tablet,delayed 81 mg PO DAILY 10/24/23 03/13/24 History release (Adult Low Dose Aspirin) blood sugar diagnostic (OneTouch #100 ea 01/04/24 03/06/24 Rx Verio test strips) blood-glucose meter (OneTouch #1 ea 01/04/24 03/06/24 Rx Verio Flex Meter) lancets 33 gauge #100 ea 01/04/24 03/06/24 Rx ferrous sulfate 325 mg (65 mg 325 mg PO DAILY #30 tabs 01/16/24 03/13/24 Rx iron) tablet insulin glargine 100 unit/mL (3 See Rx Instructions .Route .COMPLEX 02/28/24 03/13/24 History mL) subcutaneous pen (Lantus Solostar U-100 Insulin) valacyclovir 500 mg tablet 500 mg PO DAILY #90 tabs 03/05/24 03/13/24 Rx One Daily BYMOUTH DAILY 03/13/24 History Allergies Allergy/AdvReac Type Severity Reaction Status Date / Time Penicillins Allergy Interm
[2024-03-14 09:24] LABS: Glucose Point of Care 96 mg/dl (65-105)
--- NOTE | 2024-03-14 10:12 | PM.OBPNVD ---
OB - PN: Subj Subjective Date/time seen: 03/14/24 10:12 Interval history: fht 135, 140, Cat 1, ctx q 3, cervix 7/75/-2, AROM clear. Continue Pitocin. OB - PN: Obj Data Labs 03/13/24 20:30 Labs: Laboratory Results - last 24 hr 03/13/24 03/13/24 03/14/24 20:15 20:30 00:38 WBC 6.9 RBC 3.91 L Hgb 12.2 Hct 35.5 L MCV 90.8 MCH 31.2 MCHC 34.4 RDW 16.0 H Plt Count 168 MPV 12.1 H Immature Gran % (Auto) 0.7 H Neut % (Auto) 70.1 Lymph % (Auto) 19.2 [place] % (Auto) 9.0 H Eos % (Auto) 0.9 Baso % (Auto) 0.1 L Lymph # (Auto) 1.32 [place] # (Auto) 0.6 Eos # (Auto) 0.1 Baso # (Auto) 0.0 Abs Immat Gran (auto) 0.05 H Absolute Neuts (auto) 4.8 Absolute Nucleated RBC 0.000 Nucleated RBC % 0.0 POC Capillary Glucose 87 93 Blood Type A Positive Antibody Screen Negative 03/14/24 03/14/24 03/14/24 03:57 07:44 09:20 WBC RBC Hgb Hct MCV MCH MCHC RDW Plt Count MPV Immature Gran % (Auto) Neut % (Auto) Lymph % (Auto) [place] % (Auto) Eos % (Auto) Baso % (Auto) Lymph # (Auto) [place] # (Auto) Eos # (Auto) Baso # (Auto) Abs Immat Gran (auto) Absolute Neuts (auto) Absolute Nucleated RBC Nucleated RBC % POC Capillary Glucose 95 86 96 Blood Type Antibody Screen OB - PN A/P Time Spent With Patient Time: Total time spent is greater than 50% in coordination of care (as documented) at patient's floor/unit and/or counseling patient:
[2024-03-14 11:24] LABS: Glucose Point of Care 100 mg/dl (65-105)
[2024-03-14 13:13] LABS: Glucose Point of Care 94 mg/dl (65-105)
[2024-03-14 15:15] LABS: Glucose Point of Care 88 mg/dl (65-105)
[2024-03-14] MEDS: ACETAMINOPHEN 500 MG TABLET 1000 MG PO (15:46)
[2024-03-14 17:32] LABS: Glucose Point of Care 90 mg/dl (65-105)
--- NOTE | 2024-03-14 17:40 | PM.OBPNVD ---
OB - PN: Subj Subjective Date/time seen: 03/14/24 17:40 Interval history: fht 145, 145, Cat 2, cervix 8/80/-2 asynclitic. She has not had any cervical change in 4 hour with adequate contraction and no change. She was informed of diagnosis of arrest of dilation. Recommend section. Discussed risk of continuing labor and risk of section discussed. Questions answered. She agrees to section for arrest of dilation. OB - PN: Obj Data Labs 03/13/24 20:30 Labs: Laboratory Results - last 24 hr 03/13/24 03/13/24 03/14/24 20:15 20:30 00:38 WBC 6.9 RBC 3.91 L Hgb 12.2 Hct 35.5 L MCV 90.8 MCH 31.2 MCHC 34.4 RDW 16.0 H Plt Count 168 MPV 12.1 H Immature Gran % (Auto) 0.7 H Neut % (Auto) 70.1 Lymph % (Auto) 19.2 [place] % (Auto) 9.0 H Eos % (Auto) 0.9 Baso % (Auto) 0.1 L Lymph # (Auto) 1.32 [place] # (Auto) 0.6 Eos # (Auto) 0.1 Baso # (Auto) 0.0 Abs Immat Gran (auto) 0.05 H Absolute Neuts (auto) 4.8 Absolute Nucleated RBC 0.000 Nucleated RBC % 0.0 POC Capillary Glucose 87 93 Blood Type A Positive Antibody Screen Negative 03/14/24 03/14/24 03/14/24 03:57 07:44 09:20 WBC RBC Hgb Hct MCV MCH MCHC RDW Plt Count MPV Immature Gran % (Auto) Neut % (Auto) Lymph % (Auto) [place] % (Auto) Eos % (Auto) Baso % (Auto) Lymph # (Auto) [place] # (Auto) Eos # (Auto) Baso # (Auto) Abs Immat Gran (auto) Absolute Neuts (auto) Absolute Nucleated RBC Nucleated RBC % POC Capillary Glucose 95 86 96 Blood Type Antibody Screen 03/14/24 03/14/24 03/14/24 11:21 13:11 15:12 WBC RBC Hgb Hct MCV MCH MCHC RDW Plt Count MPV Immature Gran % (Auto) Neut % (Auto) Lymph % (Auto) [place] % (Auto) Eos % (Auto) Baso % (Auto) Lymph # (Auto) [place] # (Auto) Eos # (Auto) Baso # (Auto) Abs Immat Gran (auto) Absolute Neuts (auto) Absolute Nucleated RBC Nucleated RBC % POC Capillary Glucose 100 94 88 Blood Type Antibody Screen 03/14/24 17:10 WBC RBC Hgb Hct MCV MCH MCHC RDW Plt Count MPV Immature Gran % (Auto) Neut % (Auto) Lymph % (Auto) [place] % (Auto) Eos % (Auto) Baso % (Auto) Lymph # (Auto) [place] # (Auto) Eos # (Auto) Baso # (Auto) Abs Immat Gran (auto) Absolute Neuts (auto) Absolute Nucleated RBC Nucleated RBC % POC Capillary Glucose 90 Blood Type Antibody Screen OB - PN A/P Time Spent With Patient Time: Total time spent is greater than 50% in coordination of care (as documented) at patient's floor/unit and/or counseling patient:
[2024-03-14] MEDS: AZITHROMYCIN 500 MG/NS 250 ML 500 MG/250 ML BAG 250 MG IVPB (18:00)
[2024-03-14] MEDS: ceFAZolin 2 GM/D5W 50 ML 2 GM/50 ML BAG IVPB (18:14)
--- NOTE | 2024-03-14 19:35 | W.PM.OBCSD ---
OB - Delivery Note Procedure Delivery date: 03/14/24 Pre-op diagnosis: Arrest of Dilation, Gestational Diabetes and Multiple Gestation Post-op Diagnosis: Same Induction method: Per Misoprostol Protocol and Per Pitocin Protocol Delivery augmentation: Rupture of Membranes Delivery monitor: External FHT and Internal Uterine Prior to decision for section, ACOG/SM labor guidelines were considered and discussed with the patient and staff. Decision made to proceed with the section.: Yes Procedure Performed: Primary Surgeon: Giorgio Blanco MD Anesthesia type: Epidural Description of Procedure/Findings: After informed consent, risks and benefits of the procedure was discussed with the patient. The patient was taken to the operating room where she was placed in the dorsal lithotomy position with leftward tilt. After the prior placed epidural anesthesia was found to be adequate, she was then prepped and draped in the usual sterile fashion. A Pfannenstiel skin incision was made with a scalpel and carried through to the underlying layer of fascia. The fascia was then nicked in the midline, extending bilaterally. The fascia was dissected off the rectus muscles bluntly and sharply, superiorly and inferiorly. The rectus muscles were in the midline, and peritoneum was identified and entered bluntly. The pelvic organs were visualized. The bladder blade was then inserted. The vesicouterine peritoneum was identified and entered sharply with Metzenbaum scissors and extended bilaterally and then the bladder flap was created digitally. The low transverse uterine incision was then made with the scalpel and extended with bilateral index fingers in a crescent-shaped fashion.The amniotic cavity entered clear fluid noted. The head was delivered and the rest of the infant was delivered. The nose and mouth suctioned. was vigorously crying. The cord was clamped twice and cut. The was then handed off to the awaiting pediatric staff. The amniotic sac of twin B was entered with clamp. Clear fluid noted. Baby was breech and buttocks delivered. Legs delivered in pinard fashion and the arms and head delivered. Cord reduced from arm. Infant vigorously crying. The nose and mouth suctioned. Cord blood from both cords were obtained. The placentas were then delivered manually. The uterine cavity was sponge curretted. The uterus was then exteriorized. The uterine incision was then closed with 0 vicryl in a running locked fashion. A figure of eight of 0 vicryl at the right of incision was used for hemostasis. The uterus was closed with a second layer of interrupted figure of eight with 0 vicry. Hemostasis noted. The cul de sac cleared of clots. The uterus was then returned to the abdomen. Bilateral gutters were cleared off all clots and debris. The uterine incision was noted to be hemostatic. Interceed placed on uterine incision and vertically on front of uterus. The muscle bellies were inspected and noted to be hemostatic. The peritoneum was approximated with 3.0 vicryl. The subfascial layer was noted to be hemostatic, and the fascia was closed with 0 Vicryl in a running fashion x two sutures. The subcutaneous layer was then approximated with 3-0 Vicryl in a subcutaneous fashion. The skin was closed with ensorb reji. Skin dermabond applied at incision. All instruments, needle, and lap counts were correct x3. The patient was taken to the recovery room in stable condition. Estimated Blood Loss: 2,275 Urine Output: 300 Drains: No Packing: No Pathology: Yes (placenta and cord) Complications: No immediate complications Condition: Stable Disposition: PACU Baby Date of : 03/14/24 Time of : 18:37 Weeks of gestation at delivery: 38 gender: Male Weight (pounds): 6 Weight (ounces): 15 presentation: vertex Placenta delivery description: Manual Removal Cord Vessel Description: 3 Vessels Apg
[2024-03-14] MEDS: CLINDAMYCIN 900 MG/D5W 50 ML 900 MG/50 ML PIGGYBACK 50 MG IVPB (20:32)
[2024-03-14 21:01] LABS: Rapid Plasma Reagin Non-Reactive (NonReactive)
[2024-03-14] MEDS: FENTANYL 600MCG/NS30MLPCA(*CRX 600 MCG/30 ML PCA.VIAL IV CONT (21:19)
[2024-03-14] MEDS: OXYTOCIN 30 UNITS/NS 500 ML 30 UNITS/500 ML BAG 125 UNITS IV CONT (21:23)
--- NOTE | 2024-03-14 22:15 | OBPPTRN ---
Patient transferred to post room #277 via stretcher. Support person present. Oriented to unit, room, information board, rooming in, admission packet and security measures. Patient verbalizes understanding.
[2024-03-14] MEDS: ACETAMINOPHEN 325 MG TABLET 650 MG PO (22:27)
[2024-03-14] MEDS: KETOROLAC 15 MG/ML VIAL (*BKC) (22:32)
[2024-03-15] VITALS (8 sets, daily range): BP systolic 111–137; BP diastolic 61–74; PULSE 103–125; RESP 16–20; TEMP 36.7–37.5; O2SAT 97–100
[2024-03-15] MEDS: ceFAZolin 1 GM/NS 50 ML 1 GM/50 ML BAG IVPB ×3 (02:22→22:00)
[2024-03-15] MEDS: ACETAMINOPHEN 325 MG TABLET 650 MG PO ×2 (04:16→17:40)
[2024-03-15] MEDS: KETOROLAC 15 MG/ML VIAL (*BKC) IV PUSH (04:17)
[2024-03-15] MEDS: CLINDAMYCIN 900 MG/D5W 50 ML 900 MG/50 ML PIGGYBACK 50 MG IVPB ×3 (04:45→22:00)
[2024-03-15] MEDS: DEXTROSE 5%/0.45% SOD CHL 1,000 ML 999 ML IV CONT (04:45)
[2024-03-15 04:47] LABS: Basophils Percent Auto 0.2 % (0.2-1.2); Eosinophils Percent Auto 0.2 % (0-4.4); Hematocrit 23.7 % (37.0-47.0); Immature Granulocyte Absolute 0.09 K/mm3 (0.00-0.031); Immature Granulocyte Percent A 0.6 % (0-0.5); Immature Platelet Fraction Pct 10.2 % (0.9-11.2); Lymphocytes Absolute Auto 1.07 K/mm3 (0.9-3.2); Lymphocytes Percent Auto 6.9 % (18.3-44.2); Mean Corpuscular HGB Conc 33.8 g/dl (32-36); Mean Corpuscular Hemoglobin 32.1 pg (26-34); Mean Corpuscular Volume 95.2 fl (80-100); Monocytes Absolute Auto 1.5 K/mm3 (0.1-0.6); Monocytes Percent Auto 9.5 % (2.6-8.5); Neutrophils Absolute Auto 12.9 K/mm3 (1.3-6.7); Neutrophils Percent Auto 82.6 % (45.5-73.1); Platelet Count Result 129 k/mm3 (150-375); Red Blood Count 2.49 M/mm3 (4.2-5.4); Red Cell Distribution Width 16.4 % (11.5-14.5); White Blood Count 15.6 K/mm3 (4.5-10.0)
--- NOTE | 2024-03-15 07:20 | WPDANLDPN2 ---
Anes-Prog Note L&D Date/Time: 03/15/24 07:20 Comfortable throughout: labor and section Neuraxial method: epidural Epidural/Spinal procedure site: clean & non-tender Neuro status: Neuro function grossly intact. Cardiovascular status: normal Respiratory status: normal Airway patency: baseline Mental status: baseline Post-Op hydration status: normal Vital Signs: Last Vital Signs Temp 36.9 C 03/15/24 05:32 Pulse 116 H 03/15/24 05:32 Resp 18 03/15/24 05:32 BP 134/74 03/15/24 05:32 Pulse Ox 100 03/15/24 05:32 O2 Del Method Room Air 03/14/24 21:00 Pain score (VAS): 310 I/O: Intake & Output 03/14/24 03/14/24 03/15/24 15:59 23:59 07:59 Intake Total 977.1 525 1252.0 Output Total 3225 200 Balance 977.1 -2700 1052.0 Post-procedural complaints: pruritis mild, no treatment Patient feedback: Patient satisfied with anesthetic care. Other findings: patient reports she did not feel pain during c/s.
--- NOTE | 2024-03-15 07:21 | WPDANLDNPN2 ---
Anes-Prog Note L&D-Neuraxial Date/Time: 03/15/24 07:21 Neuraxial medications: epidural PF morphine Opiod-related complaints: pruritis mild, no treatment Patient feedback: Patient satisfied with post-operative pain management.
[2024-03-15] MEDS: MULTIVIT/MIN/PREN/FOL AC/IRON TABLET 1 TAB PO (08:53)
[2024-03-15] MEDS: HYDROcodone/acetaminophen (*CRX) 10-325 MG TABLET 1 TAB PO ×4 (08:56→22:00)
[2024-03-15] MEDS: SIMETHICONE 80 MG TAB.CHEW PO ×3 (08:56→17:40)
[2024-03-15] MEDS: POLYSACCHARIDE IRON COMPLEX 150 MG CAPSULE PO ×2 (08:56→17:39)
[2024-03-15] MEDS: DOCUSATE SODIUM 100 MG CAPSULE PO ×2 (08:56→17:39)
[2024-03-15] MEDS: IRON SUCROSE COMPLEX 500 MG in SODIUM CHLORIDE 0.9% IV 250 ML 79 MG IVPB (08:57)
--- NOTE | 2024-03-15 10:52 | PM.OBPNVD ---
OB - PN: Subj Subjective Date/time seen: 03/15/24 10:52 Interval history: She has had regular diet this am, no nausea or vomiting, no flatus, no leg pain. She is both babies. OB - PN: Obj Data Labs 03/15/24 04:35 Labs: Laboratory Results - last 24 hr 03/13/24 03/14/24 03/14/24 20:30 11:21 13:11 WBC RBC Hgb Hct MCV MCH MCHC RDW Plt Count MPV Immature Gran % (Auto) Neut % (Auto) Lymph % (Auto) [place] % (Auto) Eos % (Auto) Baso % (Auto) Lymph # (Auto) [place] # (Auto) Eos # (Auto) Baso # (Auto) Abs Immat Gran (auto) Absolute Neuts (auto) Absolute Nucleated RBC Nucleated RBC % % Immature Plt Fraction POC Capillary Glucose 100 94 RPR Non-reactive 03/14/24 03/14/24 03/15/24 15:12 17:10 04:35 WBC 15.6 H RBC 2.49 L Hgb 8.0 L D Hct 23.7 L MCV 95.2 MCH 32.1 MCHC 33.8 RDW 16.4 H Plt Count 129 L MPV 12.0 H Immature Gran % (Auto) 0.6 H Neut % (Auto) 82.6 H Lymph % (Auto) 6.9 L [place] % (Auto) 9.5 H Eos % (Auto) 0.2 Baso % (Auto) 0.2 Lymph # (Auto) 1.07 [place] # (Auto) 1.5 H Eos # (Auto) 0.0 Baso # (Auto) 0.0 Abs Immat Gran (auto) 0.09 H Absolute Neuts (auto) 12.9 H Absolute Nucleated RBC 0.000 Nucleated RBC % 0.0 % Immature Plt Fraction 10.2 POC Capillary Glucose 88 90 RPR OB - PN A/P Assessment and Plan (1) Delivery by section: Status: Acute Assessment and Plan: POD1. She is doing well. Switched to oral pain meds. Continue post op care. Iron infusing. CBC in am. (2) Postoperative anemia: Code(s): D64.9 - Anemia, unspecified Status: Acute Assessment and Plan: Asymptomatic. Continue iron. She is aware if becomes symptomatic then may need blood transfusion. Time Spent With Patient Time: Total time spent is greater than 50% in coordination of care (as documented) at patient's floor/unit and/or counseling patient: Exam Const: General: no acute distress Resp: Effort & Inspection: normal respiratory effort Cardio: Rate: regular rate GI: Other: dressing intact, fundus firm at umbilicus Psych: Mental Status: mental status grossly normal Affect: normal affect
[2024-03-15] MEDS: IBUPROFEN 600 MG TABLET PO ×2 (11:29→17:41)
[2024-03-15] MEDS: LIDOCAINE 5% PATCH 1 PATCH TRANSDERM (11:29)
--- NOTE | 2024-03-15 11:53 | PC.NURSE ---
1130 Introductions were made, then consulted with patient to assess needs related to . Mother led the conversation with her?plans to feed?her infants and the?experience so far. Encouraged understanding of the benefits of skin to skin (demonstrating unwrapping infants and placing upright on her chest), stimulating with massage touch, changing positions to encourage wakefulness, how to watch for early feeding cues, responsive feeding, feeding on demand (aiming for 8-12 times in 24 hours, about every 2-3 hours), milk production, building/maintaining a milk supply, duration of feeding, signs of adequate intake/output and how to record on the feeding sheet. Mother works well with her infants. Reviewed comfort measures of healing with a warm, wet washcloth to rinse breast, then leave open to air-dry, good handwashing when or touching the breast/nipples to prevent infection. Mother voiced understanding of skin to skin, stimulating with massage touch, responsive feedings, hand expressed colostrum, talking to infant to encourage if it has been 2 -2.5 hours since the start of the last , to call if infants does not latch, or if there is discomfort with . Resources used for education were facilitated with the visual educational handouts/ tool/mom and baby guide, Inpatient/outpatient resources provided with business card, feeding sheet, name written on the communication board, and the mom/baby guide. Mother voiced understanding of information, demonstrated learning and will call if there is a request for assistance. Mom says she will call with next attempt to feed infants. Reported to the Primary RN.
[2024-03-16] MEDS: HYDROcodone/acetaminophen (*CRX) 10-325 MG TABLET 1 TAB PO ×5 (02:39→23:07)
[2024-03-16] MEDS: IBUPROFEN 600 MG TABLET PO ×4 (02:39→19:38)
[2024-03-16 05:19] LABS: Hematocrit 23.6 % (37.0-47.0); Hemoglobin 7.8 g/dL (12.0-15.0); Mean Corpuscular HGB Conc 33.1 g/dl (32-36); Mean Corpuscular Hemoglobin 31.7 pg (26-34); Mean Corpuscular Volume 95.9 fl (80-100); Mean Platelet Volume 12.3 fl (7.4-10.4); Platelet Count Result 137 k/mm3 (150-375); Red Blood Count 2.46 M/mm3 (4.2-5.4); White Blood Count 14.1 K/mm3 (4.5-10.0)
[2024-03-16] MEDS: DOCUSATE SODIUM 100 MG CAPSULE PO ×2 (08:20→16:23)
[2024-03-16] MEDS: SIMETHICONE 80 MG TAB.CHEW PO ×4 (08:20→16:23)
[2024-03-16] MEDS: POLYSACCHARIDE IRON COMPLEX 150 MG CAPSULE PO ×2 (08:20→16:23)
[2024-03-16] MEDS: ACETAMINOPHEN 325 MG TABLET 650 MG PO ×3 (08:20→19:39)
[2024-03-16] MEDS: MULTIVIT/MIN/PREN/FOL AC/IRON TABLET 1 TAB PO (08:20)
[2024-03-16] MEDS: LANOLIN (LANSINOH) 7.5 GM CREAM 1 APPLIC TOPICAL (08:21)
[2024-03-16 08:35] VITALS: BP 125/67; PULSE 115; RESP 18; TEMP 36.7; O2SAT 97
--- NOTE | 2024-03-16 10:25 | PM.GYNPNOP ---
CARD FIXER - A/P Postoperative Procedures: Procedures Operation Date: 03/14/24 18:00 Actual Procedure Side Surgeon p Section Giorgio Blanco MD Time Spent With Patient Time: Total time spent is greater than 50% in coordination of care (as documented) at patient's floor/unit and/or counseling patient: Time with patient: less than 15 minutes CARD FIXER- PN:Subj Post-Op Subjective Date/time seen: 03/16/24 10:25 S: Tolerating regular diet, pain well controlled. Has ambulated without difficulty. O: Vital signs stable/afebrile Abdomen positive bowel sounds soft Labs noted A: Doing well day 2 P: 1. Routine postop/ care 2. Continue to monitor symptoms of anemia though at this point has not had any and doing well 3. Possibly home tomorrow/Monday based on patient desire Interval history: She has had regular diet this am, no nausea or vomiting, no flatus, no leg pain. She is both babies. CARD FIXER - PN: Obj Data Vital Signs Vital Signs: Vital Signs - 24 hr 03/15/24 12:00 03/15/24 20:00 03/16/24 08:35 Temperature 99.5 F 98.0 F 98.0 F Pulse Rate 116 H 103 H 115 H Respiratory Rate 16 18 18 Blood Pressure 137/73 129/65 125/67 Pulse Oximetry 98 99 97 Intake/Output Intake/Output: Intake & Output 03/13/24 03/14/24 03/15/24 03/16/24 23:59 23:59 23:59 23:59 Intake Total 2747.9 2757.5 Output Total 3225 1425 Balance -477.1 1332.5 Meds/Results Medications: Active Medications Generic Name Dose Route Start Last Admin Trade Name Freq PRN Reason Stop Dose Admin Acetaminophen 650 mg 03/14/24 22:25 03/16/24 08:20 Acetaminophen 325 Mg Tablet PO 650 mg Q6H ZAINAB Administration Hydrocodone Bitart/Acetaminophen 1 tab 03/14/24 19:25 03/16/24 08:19 Hydrocodone/Acetaminophen (*Crx) 10-325 Mg Tablet PO 1 tab Q3H PRN Administration Breakthrough Pain Rated 7-10 Hydrocodone Bitart/Acetaminophen 1 tab 03/14/24 19:25 Hydrocodone/Acetaminophen (*Crx) 5-325 Mg Tablet PO Q3H PRN Breakthrough Pain Rated 4-6 Bisacodyl 10 mg 03/14/24 19:25 Bisacodyl 10 Mg Suppository RECTAL ONCE PRN Constipation Diphenhydramine HCl 25 mg 03/14/24 17:54 Diphenhydramine Hcl Inj 50 Mg/Ml Vial IV PUSH Q4H PRN Pruritis/Nausea Docusate Sodium 100 mg 03/15/24 09:00 03/16/24 08:20 Docusate Sodium 100 Mg Capsule PO 100 mg BID ZAINAB Administration Emollient Ointment 1 applic 03/14/24 19:25 03/16/24 08:21 Lanolin (Lansinoh) 7.5 Gm Cream TOPICAL 1 applic PRN PRN Administration Sore Nipples Cefazolin Sodium 1 gm in 50 mls @ 100 mls/hr 03/14/24 22:00 03/15/24 22:30 Ancef 1 Gm/Ns 50 Ml IVPB Infused Q8H ZAINAB Infusion Ibuprofen 600 mg 03/15/24 16:25 03/16/24 08:19 Ibuprofen 600 Mg Tablet PO 600 mg Q6H [facility] Administration Lidocaine 1 patch 03/14/24 19:25 03/15/24 11:29 Lidocaine 5% Patch TRANSDERM 1 patch DAILY PRN Administration Incision pain Ondansetron HCl 4 mg 03/13/24 19:43 Ondansetron Inj 4 Mg/2 Ml Vial IV PUSH Q6H PRN Nausea And Vomiting Polysaccharide Iron Complex 150 mg 03/15/24 08:00 03/16/24 08:20 Polysaccharide Iron Complex 150 Mg Capsule PO 150 mg BIDWM [facility] Administration Vit/Calcium/Iron/Folic Ac 1 tab 03/15/24 09:00 03/16/24 08:20 Multivit/Min/Pren/Fol Ac/Iron Tablet PO 1 tab DAILY [facility] Administration Simethicone 80 mg 03/15/24 08:00 03/16/24 08:20 Simethicone 80 Mg Tab.Chew PO 80 mg TIDWM [facility] Administration Zolpidem Tartrate 5 mg 03/14/24 19:25 Zolpidem Tartrate (*Crx) 5 Mg Tablet PO HS PRN Insomnia Labs 03/16/24 03:16 Labs: Laboratory Results - last 24 hr 03/16/24 03:16 WBC 14.1 H RBC 2.46 L Hgb 7.8 L Hct 23.6 L MCV 95.9 MCH 31.7 MCHC 33.1 RDW 17.0 H Plt Count 137 L MPV 12.3 H
[2024-03-16] MEDS: LIDOCAINE 5% PATCH 1 PATCH TRANSDERM (11:40)
[2024-03-16 19:10] VITALS: BP 117/64; PULSE 105; RESP 18; TEMP 36.6; O2SAT 100
[2024-03-17] MEDS: ACETAMINOPHEN 325 MG TABLET 650 MG PO ×2 (01:40→08:43)
[2024-03-17] MEDS: IBUPROFEN 600 MG TABLET PO ×2 (01:43→08:43)
[2024-03-17] MEDS: HYDROcodone/acetaminophen (*CRX) 10-325 MG TABLET 1 TAB PO ×2 (03:17→11:37)
--- NOTE | 2024-03-17 06:48 | PC.NURSE ---
03/17/2024 at 0635. 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 She replied, Yes. 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 I then informed mother it is very possible for her to transfer the HSV to the babies and that she must use excellent hand washing after using the restroom. I continued then with how and what she could expect to see if one of the babies would actually get HSV, namely effecting the nervous system with seizures, poor eating, lethargy, temp instability, just not acting right , etc. Mother agreed and states understanding on all the topics discussed. I also reminded mother that when she sees the barrel cutter today it would be an excellent opportunity to ask any and all questions she may have regarding the HSV and other question. Again, mother states understanding.
[2024-03-17 07:43] VITALS: BP 125/68; PULSE 108; RESP 18; TEMP 36.7; O2SAT 100
[2024-03-17] MEDS: POLYSACCHARIDE IRON COMPLEX 150 MG CAPSULE PO (08:42)
[2024-03-17] MEDS: MULTIVIT/MIN/PREN/FOL AC/IRON TABLET 1 TAB PO (08:43)
[2024-03-17] MEDS: DOCUSATE SODIUM 100 MG CAPSULE PO (08:43)
[2024-03-17] MEDS: SIMETHICONE 80 MG TAB.CHEW PO ×2 (08:43→11:37)
--- NOTE | 2024-03-17 09:22 | P.DS_ITS ---
DS: Admitting Diagnosis Discharge Date 03/17/2024 Admitting Diagnosis twin DS: Discharge Diagnosis Discharge Diagnosis (1) Twin delivered: Code(s): O30.009 - Twin , unspecified number of placenta and unspecified number of amniotic sacs, unspecified trimester Status: Acute (2) Postoperative pain: Code(s): G89.18 - Other acute postprocedural pain Status: Acute OB - DS: Summary OB Procedures : None OB Procedures Intrapartum: OB Procedures: : None Peripartum Data Procedures: Procedures Operation Date: 03/14/24 18:00 Actual Procedure Side Surgeon p Section Giorgio Blanco MD Time Spent with Patient Time attestation: Total time spent providing and/or coordinating discharge services: DS: Data Data Completed and Pending Pending studies at discharge: Pending at discharge 03/14/24 19:45 Surgical [PTH] Routine Discharge Plan Discharge Discharging Clinician: Miguel Kirby Patient Disposition: Home, Self-Care Activity: may shower, no straining and pelvic rest Diet: as tolerated Patient Instructions: Antibiotic Form Stand Alone Forms: General Discharge Information Follow-up/Referrals: Giorgio Blanco MD [Physician] - 1 Week Discharge Medications: New hydrocodone-acetaminophen 5-325 mg Tablet 1 tablet PO Q3H PRN (Reason: Breakthrough Pain Rated 4-6) Qty: 20 0RF ibuprofen 600 mg Tablet 600 mg PO Q6H Qty: 30 0RF Continued promethazine 12.5 mg tablet 12.5 mg PO Q6H PRN (Reason: nausea and vomiting) Qty: 30 0RF Rx Instructions: 3 doses during day; last dose no later than 4 hr before bedtime DHA 200 mg capsule 200 mg PO DAILY One Daily BYMOUTH DAILY (DME) blood-glucose meter [OneTouch Verio Flex meter] Misc See Rx Instructions .ROUTE .MEDSUPPLY Qty: 1 0RF Rx Instructions: As directed (DME) OneTouch Verio test strips Strip See Rx Instructions .ROUTE .MEDSUPPLY Qty: 100 3RF Rx Instructions: QID: fasting and 1 hr after breakfast, lunch, and dinner. (DME) lancets 33 gauge misc See Rx Instructions .ROUTE .MEDSUPPLY Qty: 100 3RF Rx Instructions: QID: fasting and 1 hr after breakfast, lunch, and dinner. ferrous sulfate 325 mg (65 mg iron) tablet 325 mg PO DAILY Qty: 30 1RF valacyclovir 500 mg tablet 500 mg PO DAILY Qty: 90 1RF Discontinued aspirin [Adult Low Dose Aspirin] 81 mg tablet,delayed release (DR/EC) 81 mg PO DAILY insulin glargine [Lantus Solostar U-100 Insulin] 100 unit/mL (3 mL) insulin pen See Rx Instructions .ROUTE .COMPLEX Rx Instructions: 18 units morning, 20 units HS Date of admission: 03/13/24 19:38 Primary Care Provider: PHYSICIAN,IRRIGATION INSTALLATION SPECIALIST Admitting Provider: Giorgio Blanco Attending physician on admission: Giorgio Blanco Condition: Stable
[2024-03-18 08:46] VITALS: BP 128/63; PULSE 101; RESP 20; TEMP 36.7; O2SAT 99
--- NOTE | 2024-04-05 13:28 | WPDHPUPDATE1 ---
History and Physical Update Update Date/Time: 03/13/24 13:28 History and Physical has been reviewed, including an updated exam of the patient. There are NO changes in the patient's condition. Risks, benefits, and alternatives have been discussed and questions answered. Patient agrees to proceed with procedure.
== END 2024-03-17 12:03 | disposition home or self-care (01) | DRG 540 ==
LOC: ANHOB2 03-17 10:02 → ANHLDR 03-19 07:45 → ANHOB2 03-19 07:45
PROVIDERS: Admitting Provider Obstetrics & Gynecology; Visit Provider Obstetrics & Gynecology
PROC: 10D00Z1 Extraction of Products of Conception, Low, Open Approach (ICD-10-PCS; CPT 59514; principal; 2024-03-14 18:00)
DX: O30.043 Twin pregnancy, dichorionic/diamniotic, third trimester (principal); Z37.2 Twins, both liveborn; Z3A.38 38 weeks gestation of pregnancy; O24.424 Gestational diabetes mellitus in childbirth, insulin controlled; O62.1 Secondary uterine inertia
CPT/HCPCS: 36415; 82948; 85025; 85027; 85055; 86592; 86850; 86900; 86901; 88307; A9270; J0456; J0690; J1200; J1756; J1885; J2210; J2274; J2371; J2590; J2704; J2795; J3010; J7050; J7120; J7121